=== PATIENT | female | born 1990 | race Hispanic/Latino ===

== ENCOUNTER 2018-07-01 19:43 | Emergency (ER) | payer OTHER ==
[2018-07-01 19:48] VITALS: RESP 16; O2SAT 99
[2018-07-01] MEDS ORDERED: Lactated Ringer's 1,000 ML IV STA (20:05)
--- NOTE | 2018-07-01 20:12 | ED PDOC ---
HPI:Nausea, Vomiting, Diarrhea Time Seen by Provider: 07/01/18 19:58 Chief Complaint (Nursing): GI Problem Chief Complaint (Provider): ; vomiting History Per: Patient History/Exam Limitations: no limitations Onset/Duration Of Symptoms: Days (1 week) Current Symptoms Are (Timing): Still Present Additional Complaint(s): 27 y/o female, approximately 8 weeks , presents for evaluation of persistent vomiting x 1 week. Patient reports history of hyperemesis with her first child, states she is unable to keep anything down. Patient states she feels generally weak. Denies fever, headache, dizziness, chest pain, shortness of breath, palpitations, abdominal pain, vaginal bleeding/discharge, urinary symptoms, changes in bowel movements. Patients first Donor Recruiter appointment is in 2 days. Past Medical History Reviewed: Historical Data, Nursing Documentation, Vital Signs Vital Signs: Last Vital Signs Temp 98.2 F 07/01/18 19:47 Pulse 66 07/01/18 19:47 Resp 16 07/01/18 19:47 BP 139/93 H 07/01/18 19:47 Pulse Ox 99 07/01/18 19:47 - Medical History PMH: No Chronic Diseases - Family History Family History: States: No Known Family Hx - Living Arrangements Living Arrangements: With Family - Home Medications Home Medications: Ambulatory Orders Medication Instructions Recorded Amoxicillin/Potassium Clav 1 tab PO BID #14 tablet 07/01/18 [Augmentin 500-125 Tablet] Doxylamine/Pyridoxine HCl (B6) 1 - 2 each PO HS #16 tablet. 07/01/18 [Lindsay Proctor 10-10 mg Tablet] - Allergies Allergies/Adverse Reactions: Allergies Allergy/AdvReac Type Severity Reaction Status Date / Time No Known Allergies Allergy Verified 07/01/18 19:46 Review of Systems ROS Statement: Except As Marked, All Systems Reviewed And Found Negative Gastrointestinal: Positive for: Nausea, Vomiting Physical Exam - Reviewed Nursing Documentation Reviewed: Yes Vital Signs Reviewed: Yes - Physical Exam Appears: Positive for: Well, Non-toxic, No Acute Distress Head Exam: Positive for: ATRAUMATIC, NORMAL INSPECTION, NORMOCEPHALIC Skin: Positive for: Normal Color Eye Exam: Positive for: Normal appearance ENT: Positive for: Normal ENT Inspection Cardiovascular/Chest: Positive for: Regular Rate, Rhythm Respiratory: Positive for: Normal Breath Sounds Gastrointestinal/Abdominal: Positive for: Bowel Sounds, Soft. Negative for: Tenderness Back: Positive for: Normal Inspection Extremity: Positive for: Normal ROM Neurological/Psych: Positive for: Awake, Alert, Oriented (x3) - Laboratory Results Result Diagrams: 07/01/18 20:44 07/01/18 20:44 - ECG O2 Sat by Pulse Oximetry: 99 - Progress ED Course And Treament: -upreg -udip -cbc -cmp -beta hcg -urinalysis -urine c&s -IV LR bolus -IV D5/LR -IV zofran -IV reglan On re-eval, patient states she is feeling much better. Tolerated water and crackers Patient educated on findings, discharged with rx Lindsay augmentin Advised follow up retail team leader in 2 days as scheduled Hydrate, bland diet Return precautions given Disposition - Clinical Impression Clinical Impression: Hyperemesis gravidarum, UTI in - Patient ED Disposition Is Patient to be Admitted: No Counseled Patient/Family Regarding: Studies Performed, Diagnosis, Need For Followup, Rx Given - Disposition Disposition: Routine/Home Disposition Time: 00:05 Condition: IMPROVED Prescriptions: Amoxicillin/Potassium Clav [Augmentin 500-125 Tablet] 1 tab PO BID #14 tablet Doxylamine/Pyridoxine HCl (B6) [Calebs Dr 10-10 mg Tablet] 1 - 2 each PO HS #16 tablet. Instructions: Urinary Tract Infections in Adults, Hyperemesis Gravidarum Forms: [facility] (Hebrew)
[2018-07-01] MEDS ORDERED: Dextrose 5%/Lactated Ringer's 1,000 ML IV SCH (20:15)
[2018-07-01 20:49] LABS: BASO % 0.4 % (0.0-2.0); EOS % 0.4 % (0.0-4.0); HEMOGLOBIN 14.2 g/dL (12.0-16.0); LYMPH # 2.1 K/uL (1.0-4.3); LYMPH % 26.1 % (20.0-40.0); MEAN CELL VOLUME 87.4 fl (81.0-99.0); MEAN CORPUSCULAR HEMOGLOBIN 29.8 pg (27.0-31.0); MEAN CORPUSCULAR HGB CONC 34.1 g/dL (33.0-37.0); MEAN PLATELET VOLUME 8.1 fl (7.2-11.7); MONO # 0.6 K/uL (0.0-0.8); MONO % 6.9 % (0.0-10.0); NEUT # 5.4 K/uL (1.8-7.0); NEUT % 66.2 % (50.0-75.0); RBC 4.77 Mil/uL (3.80-5.20); RED CELL DISTRIBUTION WIDTH 13.6 % (11.5-14.5); WHITE BLOOD COUNT 8.2 K/uL (4.8-10.8)
[2018-07-01 20:59] LABS: ALB/GLOB RATIO 1.5 (1.0-2.1); ALBUMIN 4.6 g/dL (3.5-5.0); ALT/SGPT 23 U/L (9-52); AST/SGOT 25 U/L (14-36); BLOOD UREA NITROGEN 11 mg/dl (7-17); CALCIUM 9.3 mg/dL (8.4-10.2); GFR NON-AFRICAN AMERICAN > 60
[2018-07-01 21:20] LABS: SQUAMOUS EPITHIAL 9 /hpf (0-5); URINE BACTERIA OCC (<OCC); URINE BILIRUBIN NEGATIVE (NEGATIVE); URINE BLOOD NEGATIVE (NEGATIVE); URINE CLARITY CLOUDY (Clear); URINE COLOR YELLOW (YELLOW); URINE GLUCOSE (UA) NEG (NEGATIVE); URINE LEUKOCYTE ESTERASE MOD Leu/uL (Negative); URINE PROTEIN NEGATIVE (NEGATIVE); URINE UROBILINOGEN 0.2-1.0 mg/dL (0.2-1.0)
[2018-07-02 00:15] VITALS: BP 102/62; PULSE 60; TEMP 98.5
== END 2018-07-02 00:17 | disposition home or self-care (01) ==
LOC: H.ER 19:43
DX: O21.0 Mild hyperemesis gravidarum (principal); O23.41 Unspecified infection of urinary tract in pregnancy, first trimester; Z3A.08 8 weeks gestation of pregnancy
CPT/HCPCS: 80053; 81003; 81025; 84702; 85025; 87086; 96360; 99284; J2405; J2765; J7120